=== PATIENT | male | born 1940 | race Caucasian/White ===

== ENCOUNTER 2024-09-24 23:52 | Emergency (ER) | payer OTHER, MEDICARE ==
[~2024-09-24] VITALS: Ht 188 cm; Wt 95.3 kg
[2024-09-25] MEDS ORDERED: ondansetron HCL 4 MG/2 ML VIAL IV ONE (00:30)
[2024-09-25 03:10] VITALS: BP 102/68
== END 2024-09-25 03:10 | disposition home or self-care (01) ==
LOC: ED 23:52
DX: G96.00 Cerebrospinal fluid leak, unspecified (principal); F10.129 Alcohol abuse with intoxication, unspecified; S51.011A Laceration without foreign body of right elbow, initial encounter; S51.812A Laceration without foreign body of left forearm, initial encounter; S41.112A Laceration without foreign body of left upper arm, initial encounter; W19.XXXA Unspecified fall, initial encounter; Y92.59 Other trade areas as the place of occurrence of the external cause
CPT/HCPCS: 70450; 72125; 96374; 99284-25; J2405